=== PATIENT | male | born 1960 ===

== ENCOUNTER 2020-03-30 14:18 | Inpatient (IN) | payer OTHER, BC ==
[~2020-03-30] VITALS: Ht 175.3 cm; Wt 105.2 kg
--- NOTE | 2020-03-30 14:28 | PDOC1 ---
History and Physical Date of Admission Date of Admission DATE: 03/30/20 TIME: 14:28 Identification/Chief Complaint Chief Complaint pleasant 60 yr old male tripped on stairs at home Saturday, walking up, on carpeted surface, ripped toe found to have open fracture by DR Santoyo's office today, direct admit here for IV ANCEF 1 GM Q 8 HRS, WOUND CARE, prep for surgery, denies angina, SOA, COUGH OR FEVER td up to date according to with recent eye surgery Past Medical History Cardiovascular: Hyperlipidemia Pulmonary: No pertinent hx Endocrine: Diabetes Family History Family History: High Cholestrol, Hypertension Social History Smoke: No ALCOHOL: none Drugs: None Current Medications Current Medications Current Medications Ondansetron HCl (Zofran) 4 mg PRN Q6HRS PRN IV NAUSEA/VOMITING; Start 03/31/20 at 07:00; Stop 04/01/20 at 06:59; Status UNV Fentanyl Citrate (Fentanyl 2ml Vial) 25 mcg PRN Q5MIN PRN IV MILD PAIN 1-3; Start 03/31/20 at 07:00; Stop 04/01/20 at 06:59; Status UNV Fentanyl Citrate (Fentanyl 2ml Vial) 50 mcg PRN Q5MIN PRN IV MODERATE TO SEVERE PAIN; Start 03/31/20 at 07:00; Stop 04/01/20 at 06:59; Status UNV Morphine Sulfate (Morphine Sulfate) 1 mg PRN Q10MIN PRN IV SEVERE PAIN 7-10; Start 03/31/20 at 07:00; Stop 04/01/20 at 06:59; Status UNV Ringer's Solution 1,000 ml @ 30 mls/hr Q24H IV ; Start 03/31/20 at 07:00; Stop 03/31/20 at 18:59; Status UNV Lidocaine HCl (Xylocaine-Mpf 1% 2ml Vial) 2 ml PRN 1X PRN ID PRIOR TO IV START; Start 03/31/20 at 07:00; Stop 04/01/20 at 06:59; Status UNV Hydromorphone HCl (Dilaudid) 0.5 mg PRN Q10MIN PRN IV SEV PAIN, Second choice; Start 03/31/20 at 07:00; Stop 04/01/20 at 06:59; Status UNV Prochlorperazine Edisylate (Compazine) 5 mg PACU PRN PRN IV NAUSEA, MRX1; Start 03/31/20 at 07:00; Stop 04/01/20 at 06:59; Status UNV Allergies Allergies: Coded Allergies: lisinopril (Verified Adverse Reaction, Intermediate, COUGH, 03/30/20) s/e of constant cough ROS General: No: Chills, Night Sweats, Fatigue, Malaise, Appetite, Other PSYCHOLOGICAL ROS: No: Anxiety, Behavioral Disorder, Concentration difficultie, Decreased libido, Depression, Disorientation, Hallucinations, Hostility, Irritablity, Memory difficulties, Mood Swings, Obsessive thoughts, Physical abuse, Sexual abuse, Sleep disturbances, Suicidal ideation, Other Eyes: No Blurry vision, No Decreased vision, No Double vision, No Dry eyes, No Excessive tearing, No Eye Pain, No Itchy Eyes, No Loss of vision, No Photophobia, No Scotomata, No Uses contacts, No Uses glasses, No Other HEENT: No: Heacaches, Visual Changes, Hearing change, Nasal congestion, Nasal discharge, Oral lesions, Sinus pain, Sore Throat, Epistaxis, Sneezing, Snoring, Tinnitus, Vertigo, Vocal changes, Other ALLERGY AND IMMUNOLOGY: No: Hives, Insect Bite Sensitivity, Itchy/Watery Eyes, Nasal Congestion, Post Nasal Drip, Seasonal Allergies, Other Hematological and Lymphatic: No: Bleeding Problems, Blood Clots, Blood Transfusions, Brusing, Night Sweats, Pallor, Swollen Lymph Nodes, Other ENDOCRINE: No: Breast Changes, Galactorrhea, Hair Pattern Changes, Hot Flashes, Malaise/lethargy, Mood Swings, Palpitations, Polydipsia/polyuria, Skin Changes, Temperature Intolerance, Unexpected Weight Changes, Other Breast: No New/Changing Breast Lumps, No Nipple changes, No Nipple discharge, No Other Respiratory: No: Cough, Hemoptysis, Orthopnea, Pleuritic Pain, Shortness of breath, SOB with excertion, Sputum Changes, Stridor, Tachypnea, Wheezing, Other Cardiovascular: No Chest Pain, No Palpitations, No Orthopnea, No Paroxysmal Noc. Dyspnea, No Edema, No Lt Headedness, No Other Gastrointestinal: No Nausea, No Vomiting, No Abdominal Pain, No Diarrhea, No Constipation, No Melena, No Hematochezia, No Other Genitourinary: No Dysuria, No Frequency, No Incontinence, No Hematuria, No Retention, No Discharge, No Urgency, No Pain, No Flank Pain, No Other, No , No , No , No , No , No , No Musculoskeletal: Yes Gait Disturbance, Yes Joint Pain, Yes Joint Stiffness Neurological: No Behavorial Changes, No Bowel/Bladder ControlChng, No Confusion, No Dizziness, No Gait Disturbance, No Headaches, No Impaired Coord/balance, No Memory Loss, No Numbness/Tingling, No Seizures, No Speech Problems, No Tremors, No Visual Changes, No Weakness, No Other Skin: Yes Skin Lesion Changes; No Dry Skin, No Eczema, No Hair Changes, No Lumps, No Mole Changes, No Mottling, No Nail Changes, No Pruritus, No Rash, No Other, No Acne Physical Exam General: Alert, Oriented X3, Cooperative, No acute distress HEENT: PERRLA Lungs: Clear to auscultation, Normal air movement Heart: S1S2, RRR, no thrills, no gallops, no murmurs Breasts: Not examined Abdomen: Normal bowel sounds, Soft Rectal Exam: not examined PELVIC: Examination not indicated Extremities: No clubbing, No cyanosis, No edema Skin: Other (open fx right 2nd toe ) Neuro: Normal speech, Normal tone, Cranial nerves 3-12 NL Psych/Mental Status: Mental status NL, Mood NL Images Images CHEST AP ONLY History: Preop foot surgery Comparison: 10/26/2010 Findings: Single view of the chest is submitted. Pericardial cardiac silhouette appears somewhat greater superiorly on the left than previously although overall size not significantly enlarged. There is no dependent pleural fluid or pneumothorax. Impression: 1. While the pericardial cardiac silhouette is not considered overall significantly enlarged, size appears somewhat greater than 2011 exam. Electronically signed by: Jo Siddiqui MD (03/30/2020 3:24 PM) [facility] [place] DICTATED and SIGNED BY: JO SIDDIQUI MD DATE: 03/30/20 1524 VTE Prophylaxis Ordered VTE Prophylaxis Devices: No VTE Pharmacological Prophylaxi: Yes Assessment/Plan Assessment/Plan IMPRESSION 1. Avulsion fracture of right 2nd toe with open fracture 2, Diabetes 3. morbid obesity plan admit consult DR Santoyo cxr pre-op codid 19 screen dvt prophylaxis iv ancef 1 gm q 8 hrs arterial doppler both legs tonight ID consult re open fracture accuchecks Justicifation of Admission Dx: Justifications for Admission: Justification of Admission Dx: Yes Cellulitis: Cellulitis Fracture: Fracture Comments: open fracture right 2nd toe TRUNG DELAROSA MD Mar 30, 2020 14:28
[2020-03-30] MEDS ORDERED: 0.9 % SODIUM CHLORIDE 10 ML DISP.SYRIN. IV PRN (14:30)
[2020-03-30] MEDS ORDERED: ONDANSETRON PF 4 MG/2 ML VIAL. IV PRN (14:30)
[2020-03-30] MEDS ORDERED: DOCUSATE SODIUM 100 MG CAPSULE. PO PRN (14:30)
[2020-03-30] MEDS ORDERED: cloNIDine HCL 0.1 MG TABLET PO PRN (14:30)
[2020-03-30] MEDS ORDERED: ACETAMINOPHEN 325 MG TABLET. PO PRN (14:30)
[2020-03-30] MEDS ORDERED: LORazepam 0.5 MG TABLET PO PRN (14:30)
[2020-03-30] MEDS ORDERED: MAG HYDROX/ALUMINUM HYD/SIMETH 30 ML ORAL.SUSP PO PRN (14:30)
[2020-03-30] MEDS ORDERED: ALBUTEROL SULFATE 2.5 MG/3 ML NEBU. NEB PRN (14:30)
[2020-03-30] MEDS ORDERED: guaiFENesin ORAL 200 MG/10 ML LIQUID. PO PRN (14:30)
[2020-03-30 15:00] VITALS: BP 140/84
--- NOTE | 2020-03-30 15:27 | RAD ---
CHEST AP ONLY History: Preop foot surgery Comparison: 10/26/2010 Findings: Single view of the chest is submitted. Pericardial cardiac silhouette appears somewhat greater superiorly on the left than previously although overall size not significantly enlarged. There is no dependent pleural fluid or pneumothorax. Impression: 1. While the pericardial cardiac silhouette is not considered overall significantly enlarged, size appears somewhat greater than 2011 exam. Electronically signed by: Wayne Toledo MD (03/30/2020 3:24 PM) [facility]
[2020-03-30 15:28] LABS: BASO # 0.1 x10^3/uL (0.0-0.2); BASO % 1 % (0-3); EOS # 0.3 x10^3/uL (0.0-0.7); EOS % 3 % (0-3); HEMATOCRIT 37.8 % (39.0-53.0); HEMOGLOBIN 13.4 g/dL (13.0-17.5); LYMPH # 3.4 x10^3/uL (1.0-4.8); LYMPH % 34 % (24-48); MEAN CORPUSCULAR HEMOGLOBIN 31 pg (25-35); MEAN CORPUSCULAR HGB CONC 35 g/dL (31-37); MEAN CORPUSCULAR VOLUME 86 fL (79-100); MONO # 0.6 x10^3/uL (0.0-1.1); MONO % 6 % (0-9); NEUT # 5.6 x10^3/uL (1.8-7.7); NEUT % 56 % (31-73); PLATELET COUNT 202 x10^3/uL (140-400); RED BLOOD COUNT 4.39 x10^6/uL (4.30-5.70); RED CELL DISTRIBUTION WIDTH 13.7 % (11.5-14.5); WHITE BLOOD COUNT 9.9 x10^3/uL (4.0-11.0)
[2020-03-30 15:41] LABS: ALBUMIN 3.2 g/dL (3.4-5.0); CALCIUM 8.7 mg/dL (8.5-10.1); CREATININE 1.4 mg/dL (0.7-1.3); GFR 51.4; POTASSIUM 4.1 mmol/L (3.5-5.1); TOTAL BILIRUBIN 0.2 mg/dL (0.2-1.0); TOTAL PROTEIN 6.4 g/dL (6.4-8.2)
[2020-03-30] MEDS: ENOXAPARIN 40 MG/0.4 ML SYRINGE. SQ SCH (16:00)
[2020-03-30] MEDS ORDERED: DEXTROSE 50% 25 GM / 50ML DISP.SYRIN. IV PRN (17:00)
[2020-03-30] MEDS ORDERED: IV DEXTROSE 5% 250 ML BAG. IV PRN (17:00)
--- NOTE | 2020-03-30 17:40 | PDOC2 ---
CONSULT Date of Consult Date of Consult DATE: 03/30/20 TIME: 17:38 Reason for Consult Reason for Consult: open dislocation 2nd toe right foot Referring Physician Referring Physician: [email or web address] Identification/Chief Complaint Chief Complaint open toe dislocation 2nd toe right foot Source Source: Patient History of Present Illness Reason for Visit: 60 year old male with DM and peripheral neuropathy was seen in my office today w ith his . He relates to tripping up stairs stubbing his 2nd toe last night at 9pm and noted the previously curved toe looked straight and there was a "cut" on the bottom of the toe. His cleansed and wound and applied gauze and compression bandage. His called this morning and was scheduled for appointment. Upon evaluation and xray in the office he was admitted for IV antibiotics and plan for surgery tomorrow afternoon. Past Medical History Cardiovascular: Hyperlipidemia Pulmonary: No pertinent hx Endocrine: Diabetes Past Surgical History Past Surgical History: Other (partial hallux amputation right) Family History Family History: High Cholestrol, Hypertension Social History No ALCOHOL: none Drugs: None Current Medications Current Medications Current Medications Ondansetron HCl (Zofran) 4 mg PRN Q6HRS PRN IV NAUSEA/VOMITING; Start 03/31/20 at 07:00; Stop 04/01/20 at 06:59 Fentanyl Citrate (Fentanyl 2ml Vial) 25 mcg PRN Q5MIN PRN IV MILD PAIN 1-3; Start 03/31/20 at 07:00; Stop 03/31/20 at 20:00 Fentanyl Citrate (Fentanyl 2ml Vial) 50 mcg PRN Q5MIN PRN IV MODERATE TO SEVERE PAIN; Start 03/31/20 at 07:00; Stop 03/31/20 at 20:00 Morphine Sulfate (Morphine Sulfate) 1 mg PRN Q10MIN PRN IV SEVERE PAIN 7-10; Start 03/31/20 at 07:00; Stop 03/31/20 at 20:00 Ringer's Solution 1,000 ml @ 30 mls/hr Q24H IV ; Start 03/31/20 at 07:00; Stop 03/31/20 at 18:59 Lidocaine HCl (Xylocaine-Mpf 1% 2ml Vial) 2 ml PRN 1X PRN ID PRIOR TO IV START; Start 03/31/20 at 07:00; Stop 03/31/20 at 20:00 Hydromorphone HCl (Dilaudid) 0.5 mg PRN Q10MIN PRN IV SEV PAIN, Second choice; Start 03/31/20 at 07:00; Stop 03/31/20 at 20:00 Prochlorperazine Edisylate (Compazine) 5 mg PACU PRN PRN IV NAUSEA, MRX1; Start 03/31/20 at 07:00; Stop 03/31/20 at 20:00 Sodium Chloride (Normal Saline Flush) 3 ml QSHIFT PRN IV AFTER MEDS AND BLOOD DRAWS; Start 03/30/20 at 14:30 Sodium Chloride 1,000 ml @ 100 mls/hr Q10H IV ; Start 03/30/20 at 14:28 Ondansetron HCl (Zofran) 4 mg PRN Q4HRS PRN IV NAUSEA/VOMITING; Start 03/30/20 at 14:30 Acetaminophen (Tylenol) 650 mg PRN Q4HRS PRN PO TEMP OVER 100.4F OR MILD PAIN; Start 03/30/20 at 14:30 Al Hydroxide/Mg Hydroxide (Mylanta Plus Xs) 30 ml PRN DAILY PRN PO HEARTBURN / GAS; Start 03/30/20 at 14:30 Clonidine HCl (Catapres) 0.1 mg PRN Q6HRS PRN PO SBP>160 OR DBP>90; Start 03/30/20 at 14:30 Docusate Sodium (Colace) 100 mg PRN BID PRN PO HARD STOOLS; Start 03/30/20 at 14:30 Albuterol Sulfate (Ventolin Neb Soln) 2.5 mg PRN Q4HRS PRN NEB SHORTNESS OF BREATH; Start 03/30/20 at 14:30 Guaifenesin (Robitussin) 200 mg PRN Q4HRS PRN PO COUGH; Start 03/30/20 at 14:30 Lorazepam (Ativan) 0.5 mg PRN Q4HRS PRN PO ANXIETY / AGITATION; Start 03/30/20 at 14:30 Enoxaparin Sodium (Lovenox 40mg Syringe) 40 mg Q24H SQ ; Start 03/30/20 at 16:00 Cefazolin Sodium (Ancef) 1 gm Q8HRS IVP ; Start 03/30/20 at 16:00 Insulin Human Lispro (HumaLOG) 0-5 UNITS TIDWMEALS SQ ; Start 03/30/20 at 17:00 Dextrose (Dextrose 50%-Water Syringe) 12.5 gm PRN Q15MIN PRN IV SEE COMMENTS; Start 03/30/20 at 17:00 Dextrose (Iv Dextrose 5%) 250 ml PRN Q15MIN PRN IV SEE COMMENTS; Start 03/30/20 at 17:00; Status UNV Allergies Allergies: Coded Allergies: lisinopril (Verified Adverse Reaction, Intermediate, COUGH, 03/30/20) s/e of constant cough ROS General: No: Chills, Night Sweats, Fatigue, Malaise, Appetite, Other PSYCHOLOGICAL ROS: No: Anxiety, Behavioral Disorder, Concentration difficultie, Decreased libido, Depression, Disorientation, Hallucinations, Hostility, Irrita blity, Memory difficulties, Mood Swings, Obsessive thoughts, Physical abuse, Sexual abuse, Sleep disturbances, Suicidal ideation, Other Eyes: No Blurry vision, No Decreased vision, No Double vision, No Dry eyes, No Excessive tearing, No Eye Pain, No Itchy Eyes, No Loss of vision, No Photophobia, No Scotomata, No Uses contacts, No Uses glasses, No Other HEENT: No: Heacaches, Visual Changes, Hearing change, Nasal congestion, Nasal discharge, Oral lesions, Sinus pain, Sore Throat, Epistaxis, Sneezing, Snoring, Tinnitus, Vertigo, Vocal changes, Other ALLERGY AND IMMUNOLOGY: No: Hives, Insect Bite Sensitivity, Itchy/Watery Eyes, Nasal Congestion, Post Nasal Drip, Seasonal Allergies, Other Hematological and Lymphatic: No: Bleeding Problems, Blood Clots, Blood Transfusions, Brusing, Night Sweats, Pallor, Swollen Lymph Nodes, Other ENDOCRINE: No: Breast Changes, Galactorrhea, Hair Pattern Changes, Hot Flashes, Malaise/lethargy, Mood Swings, Palpitations, Polydipsia/polyuria, Skin Changes, Temperature Intolerance, Unexpected Weight Changes, Other Breast: No New/Changing Breast Lumps, No Nipple changes, No Nipple discharge, No Other Respiratory: No: Cough, Hemoptysis, Orthopnea, Pleuritic Pain, Shortness of breath, SOB with excertion, Sputum Changes, Stridor, Tachypnea, Wheezing, Other Cardiovascular: No Chest Pain, No Palpitations, No Orthopnea, No Paroxysmal Noc. Dyspnea, No Edema, No Lt Headedness, No Other Gastrointestinal: No Nausea, No Vomiting, No Abdominal Pain, No Diarrhea, No Constipation, No Melena, No Hematochezia, No Other Genitourinary: No Dysuria, No Frequency, No Incontinence, No Hematuria, No Retention, No Discharge, No Urgency, No Pain, No Flank Pain, No Other, No , No , No , No , No , No , No Musculoskeletal: No Gait Disturbance, No Joint Pain, No Joint Stiffness, No Joint Swelling, No Muscle Pain, No Muscular Weakness, No Pain In:, No Swelling In:, No Other Neurological: No Behavorial Changes, No Bowel/Bladder ControlChng, No Confusion, No Dizziness, No Gait Disturbance, No Headaches, No Impaired Coord/balance, No Memory Loss, No Numbness/Tingling, No Seizures, No Speech Problems, No Tremors, No Visual Changes, No Weakness, No Other Skin: Yes Other (open dislocation 2nd toe DIPJ with plantar laceration); No Dry Skin, No Eczema, No Hair Changes, No Lumps, No Mole Changes, No Mottling, No Nail Changes, No Pruritus, No Rash, No Skin Lesion Changes, No Acne Physical Exam Physical Exam lower extremity: Note full thickness laceration to plantar 2nd digit DIPJ with protruding middle phalanx head. note laceration of flexor tendon. no pustular drainage. no ischemic changes. no cellulitis. skin is warm, xerotic, supple. normal turgor. DP And PT are palpable . CFT is 3 seconds to all digits. Note open dislocation of 2nd toe at DIPJ non reducible. previous partial hallux amputation right foot. muscle strength is 5/5. steady gait. sensation absent to sharp dull and light touch. General: Alert, Oriented X3 Vitals VITALS Vital Signs Date Time Temp Pulse Resp B/P (MAP) Pulse Ox O2 Delivery O2 Flow Rate FiO2 03/30/20 16:27 Room Air 03/30/20 15:00 98.6 54 18 140/84 (102) 96 98.6 Labs Labs Laboratory Tests Test 03/30/20 15:15 03/30/20 17:10 White Blood Count 9.9 x10^3/uL (4.0-11.0) Red Blood Count 4.39 x10^6/uL (4.30-5.70) Hemoglobin 13.4 g/dL (13.0-17.5) Hematocrit 37.8 % (39.0-53.0) Mean Corpuscular Volume 86 fL (79-100) Mean Corpuscular Hemoglobin 31 pg (25-35) Mean Corpuscular Hemoglobin Concent 35 g/dL (31-37) Red Cell Distribution Width 13.7 % (11.5-14.5) Platelet Count 202 x10^3/uL (140-400) Neutrophils (%) (Auto) 56 % (31-73) Lymphocytes (%) (Auto) 34 % (24-48) Monocytes (%) (Auto) 6 % (0-9) Eosinophils (%) (Auto) 3 % (0-3) Basophils (%) (Auto) 1 % (0-3) Neutrophils # (Auto) 5.6 x10^3/uL (1.8-7.7) Lymphocytes # (Auto) 3.4 x10^3/uL (1.0-4.8) Monocytes # (Auto) 0.6 x10^3/uL (0.0-1.1) Eosinophils # (Auto) 0.3 x10^3/uL (0.0-0.7) Basophils # (Auto) 0.1 x10^3/uL (0.0-0.2) Sodium Level 140 mmol/L (136-145) Potassium Level 4.1 mmol/L (3.5-5.1) Chloride Level 104 mmol/L (98-107) Carbon Dioxide Level 27 mmol/L (21-32) Anion Gap 9 (6-14) Blood Urea Nitrogen 30 mg/dL (8-26) Creatinine 1.4 mg/dL (0.7-1.3) Estimated GFR (Cockcroft-Gault) 51.4 BUN/Creatinine Ratio 21 (6-20) Glucose Level 154 mg/dL (70-99) Calcium Level 8.7 mg/dL (8.5-10.1) Total Bilirubin 0.2 mg/dL (0.2-1.0) Aspartate Amino Transf (AST/SGOT) 24 U/L (15-37) Alanine Aminotransferase (ALT/SGPT) 25 U/L (16-63) Alkaline Phosphatase 50 U/L (46-116) Total Protein 6.4 g/dL (6.4-8.2) Albumin 3.2 g/dL (3.4-5.0) Albumin/Globulin Ratio 1.0 (1.0-1.7) Glucose (Fingerstick) 218 mg/dL (70-99) Laboratory Tests Test 03/30/20 15:15 03/30/20 17:10 White Blood Count 9.9 x10^3/uL (4.0-11.0) Red Blood Count 4.39 x10^6/uL (4.30-5.70) Hemoglobin 13.4 g/dL (13.0-17.5) Hematocrit 37.8 % (39.0-53.0) Mean Corpuscular Volume 86 fL (79-100) Mean Corpuscular Hemoglobin 31 pg (25-35) Mean Corpuscular Hemoglobin Concent 35 g/dL (31-37) Red Cell Distribution Width 13.7 % (11.5-14.5) Platelet Count 202 x10^3/uL (140-400) Neutrophils (%) (Auto) 56 % (31-73) Lymphocytes (%) (Auto) 34 % (24-48) Monocytes (%) (Auto) 6 % (0-9) Eosinophils (%) (Auto) 3 % (0-3) Basophils (%) (Auto) 1 % (0-3) Neutrophils # (Auto) 5.6 x10^3/uL (1.8-7.7) Lymphocytes # (Auto) 3.4 x10^3/uL (1.0-4.8) Monocytes # (Auto) 0.6 x10^3/uL (0.0-1.1) Eosinophils # (Auto) 0.3 x10^3/uL (0.0-0.7) Basophils # (Auto) 0.1 x10^3/uL (0.0-0.2) Sodium Level 140 mmol/L (136-145) Potassium Level 4.1 mmol/L (3.5-5.1) Chloride Level 104 mmol/L (98-107) Carbon Dioxide Level 27 mmol/L (21-32) Anion Gap 9 (6-14) Blood Urea Nitrogen 30 mg/dL (8-26) Creatinine 1.4 mg/dL (0.7-1.3) Estimated GFR (Cockcroft-Gault) 51.4 BUN/Creatinine Ratio 21 (6-20) Glucose Level 154 mg/dL (70-99) Calcium Level 8.7 mg/dL (8.5-10.1) Total Bilirubin 0.2 mg/dL (0.2-1.0) Aspartate Amino Transf (AST/SGOT) 24 U/L (15-37) Alanine Aminotransferase (ALT/SGPT) 25 U/L (16-63) Alkaline Phosphatase 50 U/L (46-116) Total Protein 6.4 g/dL (6.4-8.2) Albumin 3.2 g/dL (3.4-5.0) Albumin/Globulin Ratio 1.0 (1.0-1.7) Glucose (Fingerstick) 218 mg/dL (70-99) Images Images xray taken in office 03/30/20 shows dislocation at 2nd toe DIPJ right foot with dorsal displacement of the distal phalanx. hammer toes to lesser toes. Assessment/Plan Assessment/Plan 60 year old male with DM peripheral neuropathy, history of gangrene and partial hallux amputation/PVD, open dislocation of 2nd toe right foot - COVID test pending - Arterial doppler ordered and pending - Discussed treatment option of reduction of dislocation and possible arthroplasty of PIPJ and DIPJ with kwire placement versus 2nd digit amputation. - Discussed risks and complications as well as post operative course of each. He wishes to proceed with 2nd digit amputation. - Patient schedule for 2nd toe amputation tomorrow afternoon. May have early breakfast then NPO. - Keep dressing clean, dry, intact until surgery. - May discharge after surgery tomorrow evening. YUE EDWARDS DPM Mar 30, 2020 17:40
[2020-03-30] MEDS: ceFAZolin SODIUM IV Push 1 GM VIAL. IVP SCH ×2 (18:15→20:54)
[2020-03-30] MEDS: IV NORMAL SALINE 1000ML BAG 1,000 ML IV SCH (18:16)
[2020-03-30] MEDS: INSULIN LISPRO 300 UNITS/3 ML VIAL. SQ SCH (18:21)
[2020-03-30 19:00] VITALS: BP 185/59
[2020-03-30] MEDS ORDERED: PIP/TAZO PER PHARMACY MC PRN (19:15)
[2020-03-30] MEDS: PIPERACILLIN/TAZOBACTAM 3.375 GM in IV NORMAL SALINE 50ML 50 ML IV SCH (20:53)
--- NOTE | 2020-03-30 22:48 | RAD ---
Bilateral lower extremity arterial ultrasound History:Peripheral vascular disease, gangrene Findings: Multiple grayscale, color, and duplex spectral analysis sonographic images were acquired of the lower extremity arteries bilaterally. No vessel occlusion is demonstrated. There are triphasic and biphasic waveforms of the left lower extremity arteries. On the right, there are also mostly triphasic waveforms although monophasic waveform of the right dorsalis pedis artery. There is scattered plaque. Velocities in cm/sec: RIGHT Common femoral artery 212 Profunda femoris artery 110 Proximal SFA 218 Mid SFA 228 Distal SFA 166 Popliteal artery 149 Posterior tibial artery 101 proximally and 109 distally Peroneal artery 97 Anterior tibial artery 95 Dorsalis pedis artery 223 LEFT: Common femoral artery 167 Profunda femoris artery 76 Proximal SFA 169 Mid SFA 86 Distal SFA 264 Popliteal artery 122 Posterior tibial artery 122 proximally and 81 distally Peroneal artery 89 Anterior tibial artery 127 Dorsalis pedis artery 67 Impression: 1. No vessel occlusion is demonstrated. There is scattered plaque. There are increasing velocities between the mid to distal left superficial femoral artery suggestive of underlying stenosis. There is increased velocity of the right dorsalis pedis artery which may be due to more proximal stenosis, also abnormal monophasic waveform of the right dorsalis pedis artery. Electronically signed by: Wayne Toledo MD (03/30/2020 10:46 PM) [facility]
[2020-03-30 23:00] VITALS: BP 169/53
[2020-03-31] VITALS (12 sets, daily range): BP systolic 161–186; BP diastolic 56–79
[2020-03-31] MEDS: PIPERACILLIN/TAZOBACTAM 3.375 GM in IV NORMAL SALINE 50ML 50 ML IV SCH ×5 (01:10→23:39)
[2020-03-31] MEDS: IV NORMAL SALINE 1000ML BAG 1,000 ML IV SCH ×2 (01:12→09:53)
[2020-03-31 04:36] LABS: BASO % 1 % (0-3); EOS # 0.4 x10^3/uL (0.0-0.7); EOS % 4 % (0-3); HEMOGLOBIN 13.2 g/dL (13.0-17.5); LYMPH # 2.9 x10^3/uL (1.0-4.8); LYMPH % 32 % (24-48); MEAN CORPUSCULAR HEMOGLOBIN 30 pg (25-35); MEAN CORPUSCULAR HGB CONC 35 g/dL (31-37); MEAN CORPUSCULAR VOLUME 87 fL (79-100); MONO # 0.6 x10^3/uL (0.0-1.1); MONO % 7 % (0-9); NEUT # 5.3 x10^3/uL (1.8-7.7); NEUT % 58 % (31-73); PLATELET COUNT 196 x10^3/uL (140-400); RED BLOOD COUNT 4.38 x10^6/uL (4.30-5.70); RED CELL DISTRIBUTION WIDTH 13.5 % (11.5-14.5); WHITE BLOOD COUNT 9.2 x10^3/uL (4.0-11.0)
[2020-03-31 04:52] LABS: CALCIUM 8.2 mg/dL (8.5-10.1); CREATININE 1.4 mg/dL (0.7-1.3); GFR 51.4; POTASSIUM 3.9 mmol/L (3.5-5.1)
[2020-03-31] MEDS: ceFAZolin SODIUM IV Push 1 GM VIAL. IVP SCH (05:38)
[2020-03-31] MEDS ORDERED: IV RINGERS,LACTATED 1000ML 1,000 ML IV SCH (07:00)
[2020-03-31] MEDS ORDERED: ONDANSETRON PF 4 MG/2 ML VIAL. IV PRN (07:00)
[2020-03-31] MEDS ORDERED: PROCHLORPERAZINE 10 MG/2 ML VIAL. IV PRN (07:00)
[2020-03-31] MEDS ORDERED: fentaNYL PF VIAL 100 MCG/2 ML VIAL IV PRN ×2 (07:00)
[2020-03-31] MEDS ORDERED: LIDOCAINE 1% PF 2 ML VIAL. ID PRN (07:00)
[2020-03-31] MEDS ORDERED: MORPHINE SULFATE 2 MG/ML VIAL. IV PRN (07:00)
[2020-03-31] MEDS ORDERED: HYDROmorphone 2 MG/ML VIAL IV PRN (07:00)
--- NOTE | 2020-03-31 07:25 | EKG ---
[facility] [address] [place] [address] Test Date: 2020-03-31 Test Time: 07:19:19 Pat Name: FORTINO SANTIAGO Department: Room: [facility] Gender: M Director Of Group Counseling Program: [facility] : 1960 Requested By: TRUNG DELAROSA Order Number: [id number] Reading MD: Measurements Intervals [place] Rate: 51 P: 44 [place]: 218 QRS: 40 QRSD: 92 T: 56 QT: 430 QTc: 398 Interpretive Statements SINUS RHYTHM NORMAL ECG RI6.02 No previous ECG available for comparison
[2020-03-31] MEDS: INSULIN LISPRO 300 UNITS/3 ML VIAL. SQ SCH ×3 (08:00→17:00)
--- NOTE | 2020-03-31 08:42 | PDOC ---
Infectious Disease Note Vital Sign Vital Signs Vital Signs Date Time Temp Pulse Resp B/P (MAP) Pulse Ox O2 Delivery O2 Flow Rate FiO2 03/31/20 07:00 98.8 50 18 166/59 (94) 99 Room Air 98.8 Labs Lab Laboratory Tests Test 03/30/20 15:15 03/30/20 17:10 03/30/20 20:50 03/31/20 04:05 White Blood Count 9.9 x10^3/uL (4.0-11.0) 9.2 x10^3/uL (4.0-11.0) Red Blood Count 4.39 x10^6/uL (4.30-5.70) 4.38 x10^6/uL (4.30-5.70) Hemoglobin 13.4 g/dL (13.0-17.5) 13.2 g/dL (13.0-17.5) Hematocrit 37.8 % (39.0-53.0) 38.0 % (39.0-53.0) Mean Corpuscular Volume 86 fL (79-100) 87 fL (79-100) Mean Corpuscular Hemoglobin 31 pg (25-35) 30 pg (25-35) Mean Corpuscular Hemoglobin Concent 35 g/dL (31-37) 35 g/dL (31-37) Red Cell Distribution Width 13.7 % (11.5-14.5) 13.5 % (11.5-14.5) Platelet Count 202 x10^3/uL (140-400) 196 x10^3/uL (140-400) Neutrophils (%) (Auto) 56 % (31-73) 58 % (31-73) Lymphocytes (%) (Auto) 34 % (24-48) 32 % (24-48) Monocytes (%) (Auto) 6 % (0-9) 7 % (0-9) Eosinophils (%) (Auto) 3 % (0-3) 4 % (0-3) Basophils (%) (Auto) 1 % (0-3) 1 % (0-3) Neutrophils # (Auto) 5.6 x10^3/uL (1.8-7.7) 5.3 x10^3/uL (1.8-7.7) Lymphocytes # (Auto) 3.4 x10^3/uL (1.0-4.8) 2.9 x10^3/uL (1.0-4.8) Monocytes # (Auto) 0.6 x10^3/uL (0.0-1.1) 0.6 x10^3/uL (0.0-1.1) Eosinophils # (Auto) 0.3 x10^3/uL (0.0-0.7) 0.4 x10^3/uL (0.0-0.7) Basophils # (Auto) 0.1 x10^3/uL (0.0-0.2) 0.0 x10^3/uL (0.0-0.2) Sodium Level 140 mmol/L (136-145) 138 mmol/L (136-145) Potassium Level 4.1 mmol/L (3.5-5.1) 3.9 mmol/L (3.5-5.1) Chloride Level 104 mmol/L (98-107) 105 mmol/L (98-107) Carbon Dioxide Level 27 mmol/L (21-32) 24 mmol/L (21-32) Anion Gap 9 (6-14) 9 (6-14) Blood Urea Nitrogen 30 mg/dL (8-26) 27 mg/dL (8-26) Creatinine 1.4 mg/dL (0.7-1.3) 1.4 mg/dL (0.7-1.3) Estimated GFR (Cockcroft-Gault) 51.4 51.4 BUN/Creatinine Ratio 21 (6-20) Glucose Level 154 mg/dL (70-99) 275 mg/dL (70-99) Hemoglobin A1c 10.0 % (4.8-5.6) Calcium Level 8.7 mg/dL (8.5-10.1) 8.2 mg/dL (8.5-10.1) Total Bilirubin 0.2 mg/dL (0.2-1.0) Aspartate Amino Transf (AST/SGOT) 24 U/L (15-37) Alanine Aminotransferase (ALT/SGPT) 25 U/L (16-63) Alkaline Phosphatase 50 U/L (46-116) Total Protein 6.4 g/dL (6.4-8.2) Albumin 3.2 g/dL (3.4-5.0) Albumin/Globulin Ratio 1.0 (1.0-1.7) Glucose (Fingerstick) 218 mg/dL (70-99) 287 mg/dL (70-99) Test 03/31/20 07:47 Glucose (Fingerstick) 236 mg/dL (70-99) Objective Assessment Right 2nd toe open fracture DM CKD Obesity Plan Plan of Care Change to Zosyn 03/30 Await amputation today hopefully if closed and clean will change to po F/u labs Thank you # [id number] TAMIA MEZA MD Mar 31, 2020 08:42
--- NOTE | 2020-03-31 10:51 | CONS ---
DATE OF CONSULTATION: 03/31/2020 LOCATION: The patient is in Room #430. REQUESTING PHYSICIAN: Dr. Matt Lomas. REASON FOR CONSULTATION: Open fracture. HISTORY OF PRESENT ILLNESS: The patient is a pleasant 60-year-old gentleman with diabetes for approximately just over 30 years, who on 03/29/2020, was walking upstairs and caught his second toe. There was a cut on the bottom of the toe. His cleansed the wound he feels with water, but uncertain if she used any soap or any additional remedies. Then, he was seen in the Podiatry office on 03/30/2020. He was admitted to the hospital and underwent arterial Dopplers that were negative and was placed on cefazolin. I was consulted yesterday. I discontinued the cefazolin and instituted Zosyn. Today, he is scheduled for amputation of his toe. Currently, the patient is lying in bed. He denies fevers or chills or sweats. He has no nausea, vomiting or diarrhea. No sore throat, cough, chest pain. No dysuria, frequency or urgency. PAST MEDICAL HISTORY: Positive for: 1. Diabetes. 2. Hypercholesterolemia. 3. Hypertension. PAST SURGICAL HISTORY: Positive for: 1. Right great toe amputation. 2. Vasectomy. REVIEW OF SYSTEMS: Otherwise negative except for as mentioned above. ALLERGIES: Listed as LISINOPRIL. SOCIAL HISTORY: He is a former smoker. Very rare alcohol. He is . Has no pets. FAMILY HISTORY: Positive for diabetes and hypertension. CURRENT MEDICATIONS: Include: 1. Zosyn. 2. Clonidine. 3. Lovenox. 4. Colace. 5. Compazine. PHYSICAL EXAMINATION: VITAL SIGNS: Afebrile, temperature 98.8, pulse 50, respirations 18, blood pressure 166/59, satting 99% on room air. CONSTITUTIONAL: He is very pleasant. He is cooperative. He is in no acute distress. HEENT: Pupils are equal and reactive with normal conjunctivae. Does have muddy sclera. Oral cavity, pharynx is clear. Good dentition. NECK: Supple. No JVD. LUNGS: Clear to auscultation bilaterally. HEART: S1, S2. ABDOMEN: Soft, nontender, nondistended. No guarding, no rebound. Mildly obese. EXTREMITIES: Without clubbing or cyanosis. His right second toe is currently dressed. SKIN: Warm to touch. NEUROLOGIC: He is nonfocal. PSYCHIATRIC: Affect is pleasant. LABORATORY DATA: White count 9.2, hemoglobin 13.2, platelets 196, neutrophils 58, lymphs are 32. Creatinine was 1.4. Glucose of 275. Arterial Dopplers were negative. IMPRESSION: 1. Right second toe open fracture. 2. Diabetes. 3. Chronic kidney disease. 4. Obesity. RECOMMENDATIONS: For now, we will change to Zosyn on 03/30/2020. We will continue this. Await amputation today. Hopefully, it is closed and clean. We will change to p.o. antibiotics. We will follow up labs. Thank you so much for the patient's care. If you have any questions, please do not hesitate to contact me. TAMIA MEZA MD DR: ERICA/kassie JOB#: [id number] / [id number] ANGELINA
--- NOTE | 2020-03-31 11:06 | PDOC ---
PROGRESS NOTES History of Present Illness History of Present Illness VTE Prophylaxis Ordered VTE Prophylaxis Devices: No VTE Pharmacological Prophylaxi: Yes Assessment/Plan Assessment/Plan IMPRESSION 1. Avulsion fracture of right 2nd toe with open fracture 2, Diabetes 3. morbid obesity plan admit consult DR Santoyo cxr pre-op codid 19 screen dvt prophylaxis Change to Zosyn 03/31 arterial doppler both legs ID consult re open fracture accuchecks D/W RN Justicifation of Admission Dx: Justicifation of Admission Dx: Justifications for Admission: Justification of Admission Dx: Yes Cellulitis: Cellulitis Fracture: Fracture Comments: open fracture right 2nd toe Vitals Vitals Vital Signs Date Time Temp Pulse Resp B/P (MAP) Pulse Ox O2 Delivery O2 Flow Rate FiO2 03/31/20 07:00 98.8 50 18 166/59 (94) 99 Room Air 98.8 Physical Exam General: Alert, Oriented X3, Cooperative, No acute distress Heart: Regular rate Lungs: Clear Abdomen: Normal bowel sounds, Soft Extremities: No clubbing, No cyanosis, No edema Skin: Other (open fx right 2nd toe ) Labs LABS Bilateral lower extremity arterial ultrasound History:Peripheral vascular disease, gangrene Findings: Multiple grayscale, color, and duplex spectral analysis sonographic images were acquired of the lower extremity arteries bilaterally. No vessel occlusion is demonstrated. There are triphasic and biphasic waveforms of the left lower extremity arteries. On the right, there are also mostly triphasic waveforms although monophasic waveform of the right dorsalis pedis artery. There is scattered plaque. Velocities in cm/sec: RIGHT Common femoral artery 212 Profunda femoris artery 110 Proximal SFA 218 Mid SFA 228 Distal SFA 166 Popliteal artery 149 Posterior tibial artery 101 proximally and 109 distally Peroneal artery 97 Anterior tibial artery 95 Dorsalis pedis artery 223 LEFT: Common femoral artery 167 Profunda femoris artery 76 Proximal SFA 169 Mid SFA 86 Distal SFA 264 Popliteal artery 122 Posterior tibial artery 122 proximally and 81 distally Peroneal artery 89 Anterior tibial artery 127 Dorsalis pedis artery 67 Impression: 1. No vessel occlusion is demonstrated. There is scattered plaque. There are increasing velocities between the mid to distal left superficial femoral artery suggestive of underlying stenosis. There is increased velocity of the right dorsalis pedis artery which may be due to more proximal stenosis, also abnormal monophasic waveform of the right dorsalis pedis artery. Electronically signed by: Jo Siddiqui MD (03/30/2020 10:46 PM) [facility] DICTATED and SIGNED BY: JO SIDDIQUI MD DATE: 03/30/202245 Laboratory Tests Test 03/30/20 15:15 03/30/20 17:10 03/30/20 20:50 03/31/20 04:05 White Blood Count 9.9 x10^3/uL (4.0-11.0) 9.2 x10^3/uL (4.0-11.0) Red Blood Count 4.39 x10^6/uL (4.30-5.70) 4.38 x10^6/uL (4.30-5.70) Hemoglobin 13.4 g/dL (13.0-17.5) 13.2 g/dL (13.0-17.5) Hematocrit 37.8 % (39.0-53.0) 38.0 % (39.0-53.0) Mean Corpuscular Volume 86 fL (79-100) 87 fL (79-100) Mean Corpuscular Hemoglobin 31 pg (25-35) 30 pg (25-35) Mean Corpuscular Hemoglobin Concent 35 g/dL (31-37) 35 g/dL (31-37) Red Cell Distribution Width 13.7 % (11.5-14.5) 13.5 % (11.5-14.5) Platelet Count 202 x10^3/uL (140-400) 196 x10^3/uL (140-400) Neutrophils (%) (Auto) 56 % (31-73) 58 % (31-73) Lymphocytes (%) (Auto) 34 % (24-48) 32 % (24-48) Monocytes (%) (Auto) 6 % (0-9) 7 % (0-9) Eosinophils (%) (Auto) 3 % (0-3) 4 % (0-3) Basophils (%) (Auto) 1 % (0-3) 1 % (0-3) Neutrophils # (Auto) 5.6 x10^3/uL (1.8-7.7) 5.3 x10^3/uL (1.8-7.7) Lymphocytes # (Auto) 3.4 x10^3/uL (1.0-4.8) 2.9 x10^3/uL (1.0-4.8) Monocytes # (Auto) 0.6 x10^3/uL (0.0-1.1) 0.6 x10^3/uL (0.0-1.1) Eosinophils # (Auto) 0.3 x10^3/uL (0.0-0.7) 0.4 x10^3/uL (0.0-0.7) Basophils # (Auto) 0.1 x10^3/uL (0.0-0.2) 0.0 x10^3/uL (0.0-0.2) Sodium Level 140 mmol/L (136-145) 138 mmol/L (136-145) Potassium Level 4.1 mmol/L (3.5-5.1) 3.9 mmol/L (3.5-5.1) Chloride Level 104 mmol/L (98-107) 105 mmol/L (98-107) Carbon Dioxide Level 27 mmol/L (21-32) 24 mmol/L (21-32) Anion Gap 9 (6-14) 9 (6-14) Blood Urea Nitrogen 30 mg/dL (8-26) 27 mg/dL (8-26) Creatinine 1.4 mg/dL (0.7-1.3) 1.4 mg/dL (0.7-1.3) Estimated GFR (Cockcroft-Gault) 51.4 51.4 BUN/Creatinine Ratio 21 (6-20) Glucose Level 154 mg/dL (70-99) 275 mg/dL (70-99) Hemoglobin A1c 10.0 % (4.8-5.6) Calcium Level 8.7 mg/dL (8.5-10.1) 8.2 mg/dL (8.5-10.1) Total Bilirubin 0.2 mg/dL (0.2-1.0) Aspartate Amino Transf (AST/SGOT) 24 U/L (15-37) Alanine Aminotransferase (ALT/SGPT) 25 U/L (16-63) Alkaline Phosphatase 50 U/L (46-116) Total Protein 6.4 g/dL (6.4-8.2) Albumin 3.2 g/dL (3.4-5.0) Albumin/Globulin Ratio 1.0 (1.0-1.7) Glucose (Fingerstick) 218 mg/dL (70-99) 287 mg/dL (70-99) Test 03/31/20 07:47 Glucose (Fingerstick) 236 mg/dL (70-99) Comment Review of Relevant I have reviewed the following items felecia (where applicable) has been applied. Labs Laboratory Tests Test 03/30/20 15:15 03/30/20 17:10 03/30/20 20:50 03/31/20 04:05 White Blood Count 9.9 x10^3/uL (4.0-11.0) 9.2 x10^3/uL (4.0-11.0) Red Blood Count 4.39 x10^6/uL (4.30-5.70) 4.38 x10^6/uL (4.30-5.70) Hemoglobin 13.4 g/dL (13.0-17.5) 13.2 g/dL (13.0-17.5) Hematocrit 37.8 % (39.0-53.0) 38.0 % (39.0-53.0) Mean Corpuscular Volume 86 fL (79-100) 87 fL (79-100) Mean Corpuscular Hemoglobin 31 pg (25-35) 30 pg (25-35) Mean Corpuscular Hemoglobin Concent 35 g/dL (31-37) 35 g/dL (31-37) Red Cell Distribution Width 13.7 % (11.5-14.5) 13.5 % (11.5-14.5) Platelet Count 202 x10^3/uL (140-400) 196 x10^3/uL (140-400) Neutrophils (%) (Auto) 56 % (31-73) 58 % (31-73) Lymphocytes (%) (Auto) 34 % (24-48) 32 % (24-48) Monocytes (%) (Auto) 6 % (0-9) 7 % (0-9) Eosinophils (%) (Auto) 3 % (0-3) 4 % (0-3) Basophils (%) (Auto) 1 % (0-3) 1 % (0-3) Neutrophils # (Auto) 5.6 x10^3/uL (1.8-7.7) 5.3 x10^3/uL (1.8-7.7) Lymphocytes # (Auto) 3.4 x10^3/uL (1.0-4.8) 2.9 x10^3/uL (1.0-4.8) Monocytes # (Auto) 0.6 x10^3/uL (0.0-1.1) 0.6 x10^3/uL (0.0-1.1) Eosinophils # (Auto) 0.3 x10^3/uL (0.0-0.7) 0.4 x10^3/uL (0.0-0.7) Basophils # (Auto) 0.1 x10^3/uL (0.0-0.2) 0.0 x10^3/uL (0.0-0.2) Sodium Level 140 mmol/L (136-145) 138 mmol/L (136-145) Potassium Level 4.1 mmol/L (3.5-5.1) 3.9 mmol/L (3.5-5.1) Chloride Level 104 mmol/L (98-107) 105 mmol/L (98-107) Carbon Dioxide Level 27 mmol/L (21-32) 24 mmol/L (21-32) Anion Gap 9 (6-14) 9 (6-14) Blood Urea Nitrogen 30 mg/dL (8-26) 27 mg/dL (8-26) Creatinine 1.4 mg/dL (0.7-1.3) 1.4 mg/dL (0.7-1.3) Estimated GFR (Cockcroft-Gault) 51.4 51.4 BUN/Creatinine Ratio 21 (6-20) Glucose Level 154 mg/dL (70-99) 275 mg/dL (70-99) Hemoglobin A1c 10.0 % (4.8-5.6) Calcium Level 8.7 mg/dL (8.5-10.1) 8.2 mg/dL (8.5-10.1) Total Bilirubin 0.2 mg/dL (0.2-1.0) Aspartate Amino Transf (AST/SGOT) 24 U/L (15-37) Alanine Aminotransferase (ALT/SGPT) 25 U/L (16-63) Alkaline Phosphatase 50 U/L (46-116) Total Protein 6.4 g/dL (6.4-8.2) Albumin 3.2 g/dL (3.4-5.0) Albumin/Globulin Ratio 1.0 (1.0-1.7) Glucose (Fingerstick) 218 mg/dL (70-99) 287 mg/dL (70-99) Test 03/31/20 07:47 Glucose (Fingerstick) 236 mg/dL (70-99) Laboratory Tests Test 03/30/20 15:15 03/30/20 17:10 03/30/20 20:50 03/31/20 04:05 White Blood Count 9.9 x10^3/uL (4.0-11.0) 9.2 x10^3/uL (4.0-11.0) Red Blood Count 4.39 x10^6/uL (4.30-5.70) 4.38 x10^6/uL (4.30-5.70) Hemoglobin 13.4 g/dL (13.0-17.5) 13.2 g/dL (13.0-17.5) Hematocrit 37.8 % (39.0-53.0) 38.0 % (39.0-53.0) Mean Corpuscular Volume 86 fL (79-100) 87 fL (79-100) Mean Corpuscular Hemoglobin 31 pg (25-35) 30 pg (25-35) Mean Corpuscular Hemoglobin Concent 35 g/dL (31-37) 35 g/dL (31-37) Red Cell Distribution Width 13.7 % (11.5-14.5) 13.5 % (11.5-14.5) Platelet Count 202 x10^3/uL (140-400) 196 x10^3/uL (140-400) Neutrophils (%) (Auto) 56 % (31-73) 58 % (31-73) Lymphocytes (%) (Auto) 34 % (24-48) 32 % (24-48) Monocytes (%) (Auto) 6 % (0-9) 7 % (0-9) Eosinophils (%) (Auto) 3 % (0-3) 4 % (0-3) Basophils (%) (Auto) 1 % (0-3) 1 % (0-3) Neutrophils # (Auto) 5.6 x10^3/uL (1.8-7.7) 5.3 x10^3/uL (1.8-7.7) Lymphocytes # (Auto) 3.4 x10^3/uL (1.0-4.8) 2.9 x10^3/uL (1.0-4.8) Monocytes # (Auto) 0.6 x10^3/uL (0.0-1.1) 0.6 x10^3/uL (0.0-1.1) Eosinophils # (Auto) 0.3 x10^3/uL (0.0-0.7) 0.4 x10^3/uL (0.0-0.7) Basophils # (Auto) 0.1 x10^3/uL (0.0-0.2) 0.0 x10^3/uL (0.0-0.2) Sodium Level 140 mmol/L (136-145) 138 mmol/L (136-145) Potassium Level 4.1 mmol/L (3.5-5.1) 3.9 mmol/L (3.5-5.1) Chloride Level 104 mmol/L (98-107) 105 mmol/L (98-107) Carbon Dioxide Level 27 mmol/L (21-32) 24 mmol/L (21-32) Anion Gap 9 (6-14) 9 (6-14) Blood Urea Nitrogen 30 mg/dL (8-26) 27 mg/dL (8-26) Creatinine 1.4 mg/dL (0.7-1.3) 1.4 mg/dL (0.7-1.3) Estimated GFR (Cockcroft-Gault) 51.4 51.4 BUN/Creatinine Ratio 21 (6-20) Glucose Level 154 mg/dL (70-99) 275 mg/dL (70-99) Hemoglobin A1c 10.0 % (4.8-5.6) Calcium Level 8.7 mg/dL (8.5-10.1) 8.2 mg/dL (8.5-10.1) Total Bilirubin 0.2 mg/dL (0.2-1.0) Aspartate Amino Transf (AST/SGOT) 24 U/L (15-37) Alanine Aminotransferase (ALT/SGPT) 25 U/L (16-63) Alkaline Phosphatase 50 U/L (46-116) Total Protein 6.4 g/dL (6.4-8.2) Albumin 3.2 g/dL (3.4-5.0) Albumin/Globulin Ratio 1.0 (1.0-1.7) Glucose (Fingerstick) 218 mg/dL (70-99) 287 mg/dL (70-99) Test 03/31/20 07:47 Glucose (Fingerstick) 236 mg/dL (70-99) Medications Current Medications Ondansetron HCl (Zofran) 4 mg PRN Q6HRS PRN IV NAUSEA/VOMITING; Start 03/31/20 at 07:00; Stop 04/01/20 at 06:59 Fentanyl Citrate (Fentanyl 2ml Vial) 25 mcg PRN Q5MIN PRN IV MILD PAIN 1-3; Start 03/31/20 at 07:00; Stop 03/31/20 at 20:00 Fentanyl Citrate (Fentanyl 2ml Vial) 50 mcg PRN Q5MIN PRN IV MODERATE TO SEVERE PAIN; Start 03/31/20 at 07:00; Stop 03/31/20 at 20:00 Morphine Sulfate (Morphine Sulfate) 1 mg PRN Q10MIN PRN IV SEVERE PAIN 7-10; Start 03/31/20 at 07:00; Stop 03/31/20 at 20:00 Ringer's Solution 1,000 ml @ 30 mls/hr Q24H IV ; Start 03/31/20 at 07:00; Stop 03/31/20 at 18:59 Lidocaine HCl (Xylocaine-Mpf 1% 2ml Vial) 2 ml PRN 1X PRN ID PRIOR TO IV START; Start 03/31/20 at 07:00; Stop 03/31/20 at 20:00 Hydromorphone HCl (Dilaudid) 0.5 mg PRN Q10MIN PRN IV SEV PAIN, Second choice; Start 03/31/20 at 07:00; Stop 03/31/20 at 20:00 Prochlorperazine Edisylate (Compazine) 5 mg PACU PRN PRN IV NAUSEA, MRX1; Start 03/31/20 at 07:00; Stop 03/31/20 at 20:00 Sodium Chloride (Normal Saline Flush) 3 ml QSHIFT PRN IV AFTER MEDS AND BLOOD DRAWS; Start 03/30/20 at 14:30 Sodium Chloride 1,000 ml @ 100 mls/hr Q10H IV Last administered on 03/31/20at 09:53; Start 03/30/20 at 14:28 Ondansetron HCl (Zofran) 4 mg PRN Q4HRS PRN IV NAUSEA/VOMITING; Start 03/30/20 at 14:30 Acetaminophen (Tylenol) 650 mg PRN Q4HRS PRN PO TEMP OVER 100.4F OR MILD PAIN; Start 03/30/20 at 14:30 Al Hydroxide/Mg Hydroxide (Mylanta Plus Xs) 30 ml PRN DAILY PRN PO HEARTBURN / GAS; Start 03/30/20 at 14:30 Clonidine HCl (Catapres) 0.1 mg PRN Q6HRS PRN PO SBP>160 OR DBP>90; Start 03/30/20 at 14:30 Docusate Sodium (Colace) 100 mg PRN BID PRN PO HARD STOOLS; Start 03/30/20 at 14:30 Albuterol Sulfate (Ventolin Neb Soln) 2.5 mg PRN Q4HRS PRN NEB SHORTNESS OF BREATH; Start 03/30/20 at 14:30 Guaifenesin (Robitussin) 200 mg PRN Q4HRS PRN PO COUGH; Start 03/30/20 at 14:30 Lorazepam (Ativan) 0.5 mg PRN Q4HRS PRN PO ANXIETY / AGITATION; Start 03/30/20 at 14:30 Enoxaparin Sodium (Lovenox 40mg Syringe) 40 mg Q24H SQ ; Start 03/30/20 at 16:00 Cefazolin Sodium (Ancef) 1 gm Q8HRS IVP Last administered on 03/31/20at 05:38; Start 03/30/20 at 16:00 Insulin Human Lispro (HumaLOG) 0-5 UNITS TIDWMEALS SQ Last administered on 03/30/20at 18:21; Start 03/30/20 at 17:00 Dextrose (Dextrose 50%-Water Syringe) 12.5 gm PRN Q15MIN PRN IV SEE COMMENTS; Start 03/30/20 at 17:00 Dextrose (Iv Dextrose 5%) 250 ml PRN Q15MIN PRN IV SEE COMMENTS; Start 03/30/20 at 17:00; Status UNV Piperacillin Sod/ Tazobactam Sod (Zosyn Per Pharmacy) 1 each PRN DAILY PRN MC SEE COMMENTS; Start 03/30/20 at 19:15 Piperacillin Sod/ Tazobactam Sod 3.375 gm/Sodium Chloride 50 ml @ 100 mls/hr Q6HRS IV Last administered on 03/31/20at 05:38; Start 03/30/20 at 19:00 Vitals/I & O Vital Sign - Last 24 Hours 03/30/20 03/30/20 03/30/20 03/30/20 15:00 16:27 19:00 20:00 Temp 98.6 98.9 98.6 98.9 Pulse 54 57 Resp 18 18 B/P (MAP) 140/84 (102) 185/59 (101) Pulse Ox 96 95 O2 Delivery Room Air Room Air Room Air Room Air 03/30/20 03/31/20 03/31/20 23:00 03:00 07:00 Temp 98.2 98.1 98.8 98.2 98.1 98.8 Pulse 59 53 50 Resp 18 18 18 B/P (MAP) 169/53 (91) 186/57 (100) 166/59 (94) Pulse Ox 95 94 99 O2 Delivery Room Air Room Air Room Air Justicifation of Admission Dx: Justifications for Admission: Justification of Admission Dx: Yes Cellulitis: Cellulitis Fracture: Fracture TRUNG DELAROSA MD Mar 31, 2020 11:06
--- NOTE | 2020-03-31 11:14 | NUR ---
SS following for discharge planning. SS reviewed pt chart and discussed with pt RN. Pt is from home and is currently on room air. Pt on IV Zosyn and Ancef. Pt having surgery today, 03/31/2020. SS will continue to follow for discharge planning.
--- NOTE | 2020-03-31 11:29 | PDOC2 ---
NATE [employer]OY [employer] 03/31/20 1129: CARDIAC CONSULT DATE OF CONSULT Date of Consult DATE: 03/31/20 TIME: 10:56 REASON FOR CONSULT Reason for Consult: PAD REFERRING PHYSICIAN Referring Physician: Kerrie SOURCE Source: Chart review, Patient HISTORY OF PRESENT ILLNESS HISTORY OF PRESENT ILLNESS This is a pleasant 60 yo male admitted for complains of right 2nd toe injury. He is is significant for DM with neuropathy. He was working in his house and was utilizing a ladder and the next thing he sees was his toe bleeding. He has sustained an open right 2nd toe fracture. Consult is for PAD which was suggested in the duplex study and pt denies any symptoms of claudications plus he has 2-3+ bilateral pedal pulses with equal warmth to both legs. Denies any chest pain nor SOA. Denies any prior hx of CAD but significant for DM, HTN and HLP. He does take daily baby ASA. PAST MEDICAL HISTORY Cardiovascular: HTN, Hyperlipidemia Pulmonary: No pertinent hx CENTRAL NERVOUS SYSTEM: Periperal neuropathy GI: No pertinent hx Heme/Onc: No pertinent hx Hepatobiliary: No pertinent hx Musculoskeletal: Osteoarthritis Rheumatologic: No pertinent hx Infectious disease: No pertinent hx ENT: Other (retinopathy) Renal/: No pertinent hx Endocrine: Diabetes (2) Dermatology: No pertinent hx PAST SURGICAL HISTORY Past Surgical History: Other (right great toe amputation; eye surgery due to retinopathy; vasectomy) FAMILY HISTORY Family History: Diabetes (mother) SOCIAL HISTORY Smoke: Quit ALCOHOL: occassional Drugs: None Lives: with Family CURRENT MEDICATIONS CURRENT MEDICATIONS Current Medications Medications (Trade) Dose Ordered Sig/Amanda Route PRN Reason Start Time Stop Time Status Last Admin Dose Admin Sodium Chloride 1,000 ml @ 100 mls/hr Q10H IV 03/30/20 14:28 03/31/20 09:53 Cefazolin Sodium (Ancef) 1 gm Q8HRS IVP 03/30/20 16:00 03/31/20 05:38 Insulin Human Lispro (HumaLOG) 0-5 UNITS TIDWMEALS SQ 03/30/20 17:00 03/30/20 18:21 Piperacillin Sod/ Tazobactam Sod 3.375 gm/Sodium Chloride 50 ml @ 100 mls/hr Q6HRS IV 03/30/20 19:00 03/31/20 05:38 ALLERGIES ALLERGIES: Coded Allergies: lisinopril (Verified Adverse Reaction, Intermediate, COUGH, 03/30/20) s/e of constant cough ROS Review of System 14 point ROS evaluated with pertinent positives noted per HPI PHYSICAL EXAM General: Alert, Oriented X3, Cooperative, No acute distress HEENT: Atraumatic, Mucous membr. moist/pink Lungs: Clear to auscultation, Normal air movement Heart: Regular rate, Normal S1, Normal S2, No murmurs Skin: Other (right 2nd toe with open fracture covered with dressing) Neuro: Normal speech, Sensation intact Psych/Mental Status: Mental status NL, Mood NL MUSCULOSKELETAL: Osteoarthritic changes both hands VITALS/I&O VITALS/I&O: Vital Signs Date Time Temp Pulse Resp B/P (MAP) Pulse Ox O2 Delivery O2 Flow Rate FiO2 03/31/20 07:00 98.8 50 18 166/59 (94) 99 Room Air 98.8 LABS Lab: Laboratory Tests Test 03/30/20 15:15 03/30/20 17:10 03/30/20 20:50 03/31/20 04:05 White Blood Count 9.9 x10^3/uL (4.0-11.0) 9.2 x10^3/uL (4.0-11.0) Red Blood Count 4.39 x10^6/uL (4.30-5.70) 4.38 x10^6/uL (4.30-5.70) Hemoglobin 13.4 g/dL (13.0-17.5) 13.2 g/dL (13.0-17.5) Hematocrit 37.8 % (39.0-53.0) L 38.0 % (39.0-53.0) L Mean Corpuscular Volume 86 fL (79-100) 87 fL (79-100) Mean Corpuscular Hemoglobin 31 pg (25-35) 30 pg (25-35) Mean Corpuscular Hemoglobin Concent 35 g/dL (31-37) 35 g/dL (31-37) Red Cell Distribution Width 13.7 % (11.5-14.5) 13.5 % (11.5-14.5) Platelet Count 202 x10^3/uL (140-400) 196 x10^3/uL (140-400) Neutrophils (%) (Auto) 56 % (31-73) 58 % (31-73) Lymphocytes (%) (Auto) 34 % (24-48) 32 % (24-48) Monocytes (%) (Auto) 6 % (0-9) 7 % (0-9) Eosinophils (%) (Auto) 3 % (0-3) 4 % (0-3) H Basophils (%) (Auto) 1 % (0-3) 1 % (0-3) Neutrophils # (Auto) 5.6 x10^3/uL (1.8-7.7) 5.3 x10^3/uL (1.8-7.7) Lymphocytes # (Auto) 3.4 x10^3/uL (1.0-4.8) 2.9 x10^3/uL (1.0-4.8) Monocytes # (Auto) 0.6 x10^3/uL (0.0-1.1) 0.6 x10^3/uL (0.0-1.1) Eosinophils # (Auto) 0.3 x10^3/uL (0.0-0.7) 0.4 x10^3/uL (0.0-0.7) Basophils # (Auto) 0.1 x10^3/uL (0.0-0.2) 0.0 x10^3/uL (0.0-0.2) Sodium Level 140 mmol/L (136-145) 138 mmol/L (136-145) Potassium Level 4.1 mmol/L (3.5-5.1) 3.9 mmol/L (3.5-5.1) Chloride Level 104 mmol/L (98-107) 105 mmol/L (98-107) Carbon Dioxide Level 27 mmol/L (21-32) 24 mmol/L (21-32) Anion Gap 9 (6-14) 9 (6-14) Blood Urea Nitrogen 30 mg/dL (8-26) H 27 mg/dL (8-26) H Creatinine 1.4 mg/dL (0.7-1.3) H 1.4 mg/dL (0.7-1.3) H Estimated GFR (Cockcroft-Gault) 51.4 51.4 BUN/Creatinine Ratio 21 (6-20) H Glucose Level 154 mg/dL (70-99) H 275 mg/dL (70-99) H Hemoglobin A1c 10.0 % (4.8-5.6) H Calcium Level 8.7 mg/dL (8.5-10.1) 8.2 mg/dL (8.5-10.1) L Total Bilirubin 0.2 mg/dL (0.2-1.0) Aspartate Amino Transferase (AST) 24 U/L (15-37) Alanine Aminotransferase (ALT) 25 U/L (16-63) Alkaline Phosphatase 50 U/L (46-116) Total Protein 6.4 g/dL (6.4-8.2) Albumin 3.2 g/dL (3.4-5.0) L Albumin/Globulin Ratio 1.0 (1.0-1.7) Glucose (Fingerstick) 218 mg/dL (70-99) H 287 mg/dL (70-99) H Test 03/31/20 07:47 Glucose (Fingerstick) 236 mg/dL (70-99) H Laboratory Tests 03/30/20 15:15 03/31/20 04:05 Laboratory Tests 03/30/20 15:15 03/31/20 04:05 ASSESSMENT/PLAN ASSESSMENT/PLAN 1. Traumatic right 2nd toe injury: open fracture, needing amputation per podiatry 2. RLE PAD: no claudications and 2-3+ bilateral pedal pulses, duplex reviewed 3. HTN: labile 4. HLP 5. DM2: uncontrolled with A1C at 10, per PCP 6. Hx of LE DPN and retinopathy 7. SHAZIA vs CKD3: per PCP Recommendations 1. Start ASA and statin post procedure today 2. Check lipids. EKG has been reviewed 3. Will obtain accurate med list and will restart home BP regimen 4. Low risk for perioperative CV events, may follow up in our office CHARLEY TO MD 03/31/20 1830: CARDIAC CONSULT ASSESSMENT/PLAN ASSESSMENT/PLAN Patient seen and examined. Agree with above nurse practitioner note. 60-year-old man with no significant claudication symptoms and excellent arterial pulses. Do not suspect any impedance to wound healing at this time. Continue supportive care and treatment per podiatry. We will follow along closely. NATE GODOY APRN Mar 31, 2020 11:29 CHARLEY TO MD Mar 31, 2020 18:30
[2020-03-31] MEDS ORDERED: hydrALAZINE 20 MG/ML VIAL. IVP PRN (11:30)
[2020-03-31 11:49] LABS: CHOLESTEROL 259 mg/dL (0-200); HDLC 36 mg/dL (40-60); TRIGLYCERIDES 614 mg/dL (0-150); VLDLC 123 mg/dL (0-40)
[2020-03-31 11:50] LABS: CHOLESTEROL/HDL RATIO 7.2
[2020-03-31] MEDS ORDERED: PROPOFOL 10 MG/ML (20ML) VIAL. IV ONE (14:39)
[2020-03-31] MEDS ORDERED: LIDOCAINE 2% PF 5 ML VIAL. ONE (14:39)
[2020-03-31] MEDS ORDERED: BUPIVACAINE MPF 0.5% 30 ML VIAL. ONE (14:50)
[2020-03-31] MEDS ORDERED: LIDOCAINE 1% PF 30 ML VIAL. ONE (14:50)
[2020-03-31] MEDS ORDERED: INSULIN LISPRO 100 UNIT/ML 3ML VIAL for OP,RR ONLY. SQ PRN (15:00)
--- NOTE | 2020-03-31 15:34 | PDOC4 ---
OPERATIVE NOTE: Surgeon Yarelis Pre operative diagnosis: open dislocation 2nd toe right foot post operative diagnosis: same Procedure: 2nd toe amputation right foot Anesthesia: MAC with local Hemostasis: Right ankle tourniquet at 250mmHg EBL 1mL specimen: 2nd toe right foot intraoperative findings: note open dislocation at the distal interphalangeal joint and resection of the flexor tendon at this level with exposed middle phalanx, non reducible. no proximal sinus tracts. no ischemic changes. no pustular drainage. 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 transferred to PACU with VSS and VSI to right foot. OK for discharge per podiatry. Follow up in 5-7 days. YUE EDWARDS DPM Mar 31, 2020 15:34
--- NOTE | 2020-03-31 15:55 | OP ---
DATE OF SURGERY: 03/31/2020 PREOPERATIVE DIAGNOSIS: Open dislocation of second toe of the right foot. POSTOPERATIVE DIAGNOSIS: Open dislocation of second toe of the right foot. PROCEDURE: Second toe amputation, right foot. SURGEON: Aparna Santoyo DPM ANESTHESIA: MAC with local. HEMOSTASIS: Right ankle tourniquet at 250 mmHg. 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 He was walking up the stairs at home a few nights ago and jammed his toe and noted that there was bleeding and a cut on the bottom of the foot. He called the office the next day and it was seen in the office and noted to have an open dislocation at the distal interphalangeal joint on x-rays. We were unable to close or reduce the toe and discussed with the patient his treatment options to include reduction of the dislocation of the second toe with closure versus reduction with also a hammertoe surgery correction to allow the toe to be in rectus versus an isolated second digit toe amputation. Discussed with the patient the risks and benefits with each as well as the postoperative course. The patient with diabetes, peripheral neuropathy and mild peripheral vascular disease confirmed with arterial Doppler. Patient wished to proceed with isolated second digit amputation of the right foot. He was admitted to the hospital yesterday 03/30/2020 to receive IV antibiotics. COVID-19 test was negative and the patient signed consent freely in chart. No guarantees made. DESCRIPTION OF PROCEDURE: The patient was transported to the operating room via a cart, placed on the operating table in supine position. IV sedation was administered per anesthesia and a well-padded tourniquet was placed over the right ankle. The timeout was taken to verify the patient's surgery, and limb to be performed. A second toe block was given to the right foot with a 1:1 mixture of 1% lidocaine plain and 0.5% Marcaine plain. The right foot was prepped and draped in the usual aseptic manner. The Esmarch bandage was used to exsanguinate the right foot and the right ankle tourniquet was inflated to 250 mmHg. Attention was directed to the second digit where a tennis racquet incision was made at the base of the second toe. The digit was disarticulated at the metatarsophalangeal joint and sent to pathology. The wound was then copiously irrigated with sterile saline. Small vessels were cauterized. The wound culture was taken, aerobic and anaerobic prior to irrigation. The surgical incision was then reapproximated with 4-0 nylon. The patient tolerated both anesthesia and procedure well. Tourniquet was deflated and applied a light Betadine gauze, Kerlix bandage and Mitesh bandage to the right foot. He is to keep this dressing clean, dry and intact. He is okay to be discharged from Podiatry standpoint even this evening and will follow up in the office in 5-7 days on p.o. antibiotics per Infectious Disease recommendations. APARNA SANTOYO DPM DR: Ingrid JOB#: [id number] / [id number]
[2020-03-31] MEDS: ENOXAPARIN 40 MG/0.4 ML SYRINGE. SQ SCH (16:00)
--- NOTE | 2020-03-31 16:18 | RAD ---
EXAM: Right foot 3 views. HISTORY: Second toe amputation. COMPARISON: None. FINDINGS: Three views of the right foot are obtained. The right second toe has been amputated through the metatarsophalangeal joint. Some soft tissue gas persists. The first toe has been amputated through the proximal phalangeal neck. 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 No fractures are identified. Alignment is maintained. Atherosclerotic calcifications are noted. IMPRESSION: 1. Amputation through the second metatarsophalangeal joint. Electronically signed by: Niles Duffy MD (03/31/2020 4:16 PM) [id number]
--- NOTE | 2020-03-31 17:57 | NUR ---
Wound Care Pt scheduled for surgery today. Will reassess post op.
[2020-03-31] MEDS: LACTOBACILLUS RHAMNOSUS GG 1 CAPSULE. PO SCH (20:53)
[2020-03-31] MEDS ORDERED: GABA300C9 PO (21:38)
[2020-03-31] MEDS ORDERED: INSU100V8 SQ ×2 (21:38→23:13)
[2020-03-31] MEDS ORDERED: CARV3.123 PO (21:38)
[2020-03-31] MEDS ORDERED: DEXTROSE 50% 25 GM / 50ML DISP.SYRIN. IV PRN (21:45)
[2020-03-31] MEDS ORDERED: GABAPENTIN 300 MG CAPSULE. PO SCH (22:00)
[2020-03-31] MEDS ORDERED: INSULIN LISPRO 300 UNITS/3 ML VIAL. SQ ONE (22:00)
[2020-03-31] MEDS ORDERED: PSYLLIUM HUSK (SUGAR FREE) 1 PKT PACKET PO SCH (22:00)
[2020-03-31] MEDS ORDERED: INSULIN GLARGINE SYRINGE. SQ SCH (22:00)
[2020-03-31] MEDS: GABAPENTIN 100 MG CAPSULE. PO SCH (22:20)
[2020-03-31] MEDS ORDERED: INSU100I13 SQ (22:58)
[2020-03-31] MEDS ORDERED: INSULIN GLARGINE SYRINGE. SQ ONE (23:00)
[2020-04-01 03:06] VITALS: BP 160/49
[2020-04-01] MEDS: PIPERACILLIN/TAZOBACTAM 3.375 GM in IV NORMAL SALINE 50ML 50 ML IV SCH (05:56)
[2020-04-01 06:22] LABS: ALBUMIN 2.9 g/dL (3.4-5.0); CALCIUM 8.5 mg/dL (8.5-10.1); CREATININE 1.2 mg/dL (0.7-1.3); GFR 61.3; PHOSPHORUS 2.5 mg/dL (2.6-4.7); POTASSIUM 3.8 mmol/L (3.5-5.1)
[2020-04-01] MEDS: IV NORMAL SALINE 1000ML BAG 1,000 ML IV SCH ×2 (06:28→08:41)
[2020-04-01 07:00] VITALS: BP 163/55
[2020-04-01] MEDS ORDERED: CARVEDILOL 3.125 MG TABLET. PO SCH (08:00)
[2020-04-01] MEDS: LACTOBACILLUS RHAMNOSUS GG 1 CAPSULE. PO SCH (08:40)
[2020-04-01] MEDS: GABAPENTIN 100 MG CAPSULE. PO SCH (08:40)
[2020-04-01] MEDS: INSULIN LISPRO 300 UNITS/3 ML VIAL. SQ SCH ×2 (08:44→12:26)
--- NOTE | 2020-04-01 10:48 | PDOC ---
Infectious Disease Note Subjective Subjective Doing well. No pain No F/c/S/N/v/d/SOA/rash ROS ROS o/w neg Vital Sign Vital Signs Vital Signs Date Time Temp Pulse Resp B/P (MAP) Pulse Ox O2 Delivery O2 Flow Rate FiO2 04/01/20 08:40 58 163/55 04/01/20 07:30 Room Air 04/01/20 07:00 99.5 17 97 99.5 Physical Exam PHYSICAL EXAM CONSTITUTIONAL: He is very pleasant. He is cooperative. He is in no acute distress. HEENT: Pupils are equal and reactive with normal conjunctivae. Does have muddy sclera. Oral cavity, pharynx is clear. Good dentition. NECK: Supple. No JVD. LUNGS: Clear to auscultation bilaterally. HEART: S1, S2. ABDOMEN: Soft, nontender, nondistended. No guarding, no rebound. Mildly obese. EXTREMITIES: Without clubbing or cyanosis. His right second toe is currently dressed with post op dressing. SKIN: Warm to touch. NEUROLOGIC: He is nonfocal. PSYCHIATRIC: Affect is pleasant. Labs Lab Laboratory Tests Test 03/31/20 11:47 03/31/20 14:00 03/31/20 15:36 03/31/20 17:18 Glucose (Fingerstick) 259 mg/dL (70-99) 266 mg/dL (70-99) 208 mg/dL (70-99) 188 mg/dL (70-99) Test 03/31/20 20:39 04/01/20 03:50 04/01/20 07:26 Glucose (Fingerstick) 321 mg/dL (70-99) 182 mg/dL (70-99) Sodium Level 141 mmol/L (136-145) Potassium Level 3.8 mmol/L (3.5-5.1) Chloride Level 105 mmol/L (98-107) Carbon Dioxide Level 24 mmol/L (21-32) Anion Gap 12 (6-14) Blood Urea Nitrogen 18 mg/dL (8-26) Creatinine 1.2 mg/dL (0.7-1.3) Estimated GFR (Cockcroft-Gault) 61.3 Glucose Level 187 mg/dL (70-99) Calcium Level 8.5 mg/dL (8.5-10.1) Phosphorus Level 2.5 mg/dL (2.6-4.7) Albumin 2.9 g/dL (3.4-5.0) Micro Microbiology 03/30/20 Blood Culture - Preliminary, Resulted NO GROWTH AFTER 1 DAY Objective Assessment Right 2nd toe open fracture - s/p closed amputation 03/31 DM CKD - better Obesity COVID - neg Plan Plan of Care D/c Zosyn 03/30 Ok to d/c home on Augmentin and F/u with Podiatry Wound care per podiatry D/w nursing TAMIA MEZA MD Apr 01, 2020 10:48
[2020-04-01 11:00] VITALS: BP 155/58
[2020-04-01] MEDS ORDERED: AMOXICILLIN/K CLAV 875/125MG TABLET. PO ONE (11:15)
--- NOTE | 2020-04-01 11:49 | SNU/HH DC ---
DISCHARGE WITH HOME HEALTH DISCHARGE INFORMATION: Condition on Discharge: Stable CODE STATUS: Code Status: Full HOME HEALTH: Face to Face: I certify this patient is under my care and that I, or a nurse practitioner or physician's supply assistant working with me, had a face to face encounter that meets the physician face to face encounter requirements with this patient on []. Medical Complications: Other (Recent toe amputation) [facility] For: Assess & Educate Safety RN For Eval/Treatment: Yes Physical Therapy For: Evalulation/Treatment Occupational Therapy For: Evaluation/Treatment Home Health Aide For: Self-care BLOCK HANDLER For: Community Resources Pt Meets Homebound Status: Unsteady balance w/ amb, POST DISCHARGE ORDERS: DIET AFTER DISCHARGE: ADA CERTIFICATION STATEMENT: Certification Statement: Certification Statement: Based on the above finding, I certify that this patient is confined to the home and needs intermittent penitentiary care, physical therapy and/or speech therapy, or continues to need occupational therapy.~ This patient is under my care, and I have initiated the establishment of the plan of care.~ This patient will be followed by myself or a community physician who will periodically review the plan of care. Home Meds Reported Medications Insulin Glargine,Hum.rec.anlog (LANTUS) 100 Unit/1 Ml Vial, 60 UNIT SQ QAM for DM2, VIAL 03/31/20 Insulin Glargine,Hum.rec.anlog (LANTUS) 100 Unit/1 Ml Vial, 50 UNITS SQ QHS for DM2 for 30 Days, #1 03/31/20 Gabapentin (Gabapentin) 300 Mg Capsule, 1 CAP PO TID for Diabetic neuropathy for 30 Days, #90 03/31/20 Carvedilol (Carvedilol) 3.125 Mg Tablet, 1 TAB PO BID for DM2 for 30 Days, #60 03/31/20 SUGEY ADAMS III DO Apr 01, 2020 11:49
--- NOTE | 2020-04-01 12:46 | NUR ---
Pt. discharged to home with Rx and Dr. Ziegler's post of d/c instructions. pt. verbalized understanding. R ft nasreen CDI.
--- NOTE | 2020-04-01 14:19 | NUR ---
SS received discharge orders for home healthcare. Pt had discharged when SS attempted to meet with pt and spouse. SS attempted to contact pt's spouse but contact number in chart said it was disconnected. SS phoned and faxed discharge orders and referral to [facility], ; fax [phone]. SS will continue to follow for discharge planning.
--- NOTE | 2020-04-05 18:06 | PATHOLOGY ---
[facility] Accession Number: [id number] . 01 Material submitted: . toe - SECOND RIGHT TOE. Modifiers: right, second . 01 Clinical history: . Open fracture of right second toe; DVD; gangrene second digit, right . 02 Diagnosis: Right second toe amputation: - Laceration of skin and subcutaneous tissue of plantar aspect of toe overlying distal interphalangeal joint, with open dislocation of middle phalangeal bone and focal recent hemorrhage and acute inflammation. (JPM:celena; 04/05/2020) S 04/05/2020 1654 Local . 02 Electronically signed: . Remigio Muñoz MD, Pathologist NPI- [id number] . 01 Gross description: . The specimen is received in formalin, labeled "Jorge Gregory, right second toe". Received is an amputated digit measuring 5.1 x 2.2 x 1.9 cm in greatest dimensions. The bone margin is smooth and concave in appearance, consistent with disarticulation. The bone and soft tissue margins are inked black. The nail is present displaying a light seo and thickened appearance. On the plantar aspect of the specimen, there is a laceration of the skin measuring 2.5 cm which exposes the underlying bone. The remainder of the epidermis is pale seo to dusky barrios-seo in appearance. A full-thickness longitudinal cross-section is submitted from proximal to distal aspects in cassettes A1 through A3, following decalcification. (CAA; 04/01/2020) QAC/QAC 04/05/2020 1100 Local . 02 Pathologist provided ICD-10: S91.114A, S93.106A, L98.9 . 02 CPT . 378789, 622169 Specimen Comment: A courtesy copy of this report has been sent to [phone], [phone] Specimen Comment: [phone], Specimen Comment: Report sent to ,DR DELAROSA / DR GREENE Performed at: 01 [facility] [address] [facility] [address], [place] [id number] MD Rich Barreto MD Phone: [phone] Performed at: 02 [facility] [address] [place], [place] [id number] MD Remigio Muñoz MD Phone: [phone]
== END 2020-04-01 13:05 | disposition home health service (06) | DRG 505 ==
LOC: 4 NORTH 14:18
PROVIDERS: ADMIT Family Medicine; ATTEND Family Medicine
PROC: 0Y6R0Z0 Detachment at Right 2nd Toe, Complete, Open Approach (ICD-10-PCS; principal; 2020-03-31 15:30)
DX: S92.911B Unspecified fracture of right toe(s), initial encounter for open fracture (principal); M19.90 Unspecified osteoarthritis, unspecified site; E78.5 Hyperlipidemia, unspecified; E66.01 Morbid (severe) obesity due to excess calories; E11.42 Type 2 diabetes mellitus with diabetic polyneuropathy; E78.00 Pure hypercholesterolemia, unspecified; N18.9 Chronic kidney disease, unspecified; E11.22 Type 2 diabetes mellitus with diabetic chronic kidney disease; I12.9 Hypertensive chronic kidney disease with stage 1 through stage 4 chronic kidney disease, or unspecified chronic kidney disease; E11.319 Type 2 diabetes mellitus with unspecified diabetic retinopathy without macular edema; Z20.828 Contact with and (suspected) exposure to other viral communicable diseases; Z68.34 Body mass index [BMI] 34.0-34.9, adult; W22.8XXA Striking against or struck by other objects, initial encounter; Y93.89 Activity, other specified; Y92.89 Other specified places as the place of occurrence of the external cause; Y99.8 Other external cause status; Z88.8 Allergy status to other drugs, medicaments and biological substances; Z79.82 Long term (current) use of aspirin; Z89.411 Acquired absence of right great toe; Z87.891 Personal history of nicotine dependence; Z83.3 Family history of diabetes mellitus; Z82.49 Family history of ischemic heart disease and other diseases of the circulatory system
CPT/HCPCS: 36415; 71045; 73630; 80048; 80053; 80061; 80069; 82962; 83036; 85025; 87040; 87071; 87075; 87077; 87186; 88305; 88311; 93005; 93925; A7015; J0690; J1815; J2543; J2704; J3490; J7030; A4461; G0378; U0003-CS